=== PATIENT | male | born 1995 | race Two or more races ===

== ENCOUNTER → 2018-08-27 | Outpatient (REF) | payer OTHER ==
[2018-08-27 20:35] LABS: CHLAMYDIA DNA AMPLIFICATION NEGATIVE (NEGATIVE); GC DNA AMPLIFICATION NEGATIVE (NEGATIVE)
== END ==
LOC: M LAB REF 09:38
PROVIDERS: ATTEND Physician Assistant
DX: Z20.2 Contact with and (suspected) exposure to infections with a predominantly sexual mode of transmission (principal)

== ENCOUNTER → 2018-09-24 | Outpatient (REF) | payer OTHER ==
[2018-09-24 17:04] LABS: CHLAMYDIA DNA AMPLIFICATION NEGATIVE (NEGATIVE); GC DNA AMPLIFICATION NEGATIVE (NEGATIVE)
== END ==
LOC: M LAB REF 13:46
PROVIDERS: ATTEND Physician Assistant Medical
DX: Z20.2 Contact with and (suspected) exposure to infections with a predominantly sexual mode of transmission (principal)

== ENCOUNTER 2020-12-30 03:00 | Emergency (ER) | payer BC, OTHER ==
[~2020-12-30] VITALS: Ht 177.8 cm; Wt 125.1 kg
--- NOTE | 2020-12-30 06:44 | REPVR ---
PROCEDURE INFORMATION: Exam: US Scrotum Exam date and time: 12/30/2020 6:31 AM Age: 25 years old Clinical indication: Scrotum pain; Additional info: Left testicle pain TECHNIQUE: Imaging protocol: Real-time ultrasound of the scrotum and contents with color Doppler and image documentation. COMPARISON: No relevant prior studies available. FINDINGS: Right testicle: Normal measuring 3.4 x 2.1 x 2.6 cm. No mass. No torsion. Normal vascular flow. Left testicle: Normal measuring 3.5 x 2.0 x 2.6 cm. No mass. No torsion. Normal vascular flow. Epididymides: Left epididymal head cyst measuring 1.2 x 0.9 x 1.0 cm. Right epididymis is unremarkable. Scrotum: Normal. IMPRESSION: Left epididymal head cyst measuring 1.2 x 0.9 x 1.0 cm. Bilateral testicles and right epididymis are unremarkable. Electronically signed by: Karen Justin On 12/30/2020 06:44:11 AM
[2020-12-30 06:59] LABS: GC DNA AMPLIFICATION NEGATIVE (NEGATIVE)
[2020-12-30 07:48] VITALS: BP 145/82
== END 2020-12-30 07:50 | disposition home or self-care (01) ==
LOC: M ED 03:00
DX: N50.3 Cyst of epididymis (principal)

== ENCOUNTER → 2024-06-08 | Outpatient (REF) | payer BC ==
[2024-06-08 14:47] LABS: HEMATOCRIT 48.3 % (42.0-52.0); HEMOGLOBIN 15.9 g/dl (13.5-17.5); MEAN CORPUSCULAR HEMOGLOBIN 28.8 pg (27.0-33.0); MEAN CORPUSCULAR HGB CONC 32.9 g/dl (32.0-36.5); MEAN CORPUSCULAR VOLUME 87.5 fl (80.0-96.0); PLATELET COUNT, AUTOMATED 215 10^3/uL (150-450); RED BLOOD COUNT 5.52 10^6/uL (4.30-6.10); WHITE BLOOD COUNT 6.7 10^3/uL (4.0-10.0)
[2024-06-08 15:18] LABS: ALBUMIN 4.3 G/DL (3.2-5.2); ALKALINE PHOSPHATASE 85 U/L (40-129); ALT/SGPT 66 U/L (7.0-40); AST/SGOT 30 U/L (<34); BILIRUBIN,TOTAL 0.5 MG/DL (0.3-1.2); BLOOD UREA NITROGEN 12 MG/DL (9-23); CARBON DIOXIDE LEVEL 28 MMOL/L (20-31); CHLORIDE LEVEL 105 MMOL/L (98-107); CHOLESTEROL LEVEL 152 MG/DL (<200); CREATININE FOR GFR 1.16 MG/DL (0.70-1.30); GLOMERULAR FILTRATION RATE > 60.0 (>60); GLUCOSE, FASTING 90 MG/DL (60-100); LDL CHOLESTEROL 101.8 MG/DL (<100); POTASSIUM SERUM 4.8 MMOL/L (3.5-5.1); SODIUM LEVEL 141 MMOL/L (136-145); TRIGLYCERIDES LEVEL 66 MG/DL (<150)
[2024-06-08 15:19] LABS: THYROID STIMULATING HORMONE 1.622 uIU/ML (0.55-4.78)
[2024-06-08 15:20] LABS: FREE T4 1.16 NG/DL (0.89-1.76)
[2024-06-08 15:40] LABS: HEMOGLOBIN A1c 5.2 % (4.0-6.0)
[2024-06-08 17:38] LABS: GC DNA AMPLIFICATION NEGATIVE (NEGATIVE)
== END ==
LOC: M SFHCADAM 09:40
PROVIDERS: ATTEND Family Medicine
DX: G43.909 Migraine, unspecified, not intractable, without status migrainosus (principal); E66.01 Morbid (severe) obesity due to excess calories; E78.5 Hyperlipidemia, unspecified; Z13.1 Encounter for screening for diabetes mellitus; Z11.3 Encounter for screening for infections with a predominantly sexual mode of transmission

== ENCOUNTER → 2024-09-05 | Outpatient (CLI) | payer BC, MEDICAID, OTHER, SELFPAY | LOC: M SLEEP HO 11:12 | PROVIDERS: ATTEND Family Medicine | DX: R06.83 Snoring (principal) ==